=== PATIENT | female | born 1960 | race Caucasian/White ===

== ENCOUNTER 2017-09-17 08:44 | Emergency (ER) | payer OTHER ==
[~2017-09-17] VITALS: Ht 165.1 cm; Wt 95.0 kg
[2017-09-17 08:46] VITALS: BP 146/78; PULSE 87; RESP 16; TEMP 98.4; O2SAT 97
[2017-09-17] MEDS ORDERED: ASPI-516 CHEW (08:56)
[2017-09-17] MEDS ORDERED: LISI-515 PO (08:56)
[2017-09-17] MEDS ORDERED: ROPI3TAB PO (08:56)
[2017-09-17] MEDS ORDERED: ROSU20 PO (08:56)
[2017-09-17 09:15] VITALS: O2SAT 99
--- NOTE | 2017-09-17 09:18 | RADRPT ---
EXAM DATE/TIME: 09/17/2017 09:16 [place] COMPARISON: No previous studies available for comparison. INDICATIONS : Chest pain. Short of breath. Dizziness. MEDICAL HISTORY : Smoker. SURGICAL HISTORY : None. ENCOUNTER: Initial ACUITY: 2 days PAIN SCORE: 1/10 LOCATION: Bilateral chest FINDINGS: A single view of the chest demonstrates the lungs to be symmetrically aerated without evidence of mas s, infiltrate or effusion. The cardiomediastinal contours are unremarkable. Osseous structures are intact. CONCLUSION: 1. No acute cardiopulmonary disease. Shekhar Rasmussen MD on September 17, 2017 at 9:15 Board Certified Radiologist. This report was verified electronically.
[2017-09-17 09:28] LABS: AUTOMATED NEUTROPHIL # 3.3 TH/MM3 (1.8-7.7); BASOPHIL % 0.8 % (0.0-2.0); EOSINOPHIL # 0.1 TH/MM3 (0-0.4); EOSINOPHIL % 1.1 % (0.0-4.0); HEMATOCRIT 43.4 % (35.0-46.0); HEMO FLAGS DIFF FINAL; LYMPHOCYTE # 1.7 TH/MM3 (1.0-4.8); MEAN CELL VOLUME 94.3 FL (80.0-100.0); MEAN CORPUSCULAR HEMOGLOBIN 31.5 PG (27.0-34.0); MEAN CORPUSCULAR HGB CONC 33.4 % (32.0-36.0); MONO % 7.1 % (0.0-8.0); PLATELET COUNT 191 TH/MM3 (150-450); RED CELL DISTRIBUTION WIDTH 12.8 % (11.6-17.2); WHITE BLOOD COUNT 5.6 TH/MM3 (4.0-11.0)
[2017-09-17] MEDS ORDERED: SODIUM CHLOR 0.9% 1000 ML INJ 1,000 ML IV ONE (09:30)
--- NOTE | 2017-09-17 09:37 | PD ---
HPI Chief Complaint: Chest Pain Time Seen by Provider: 09:14 Travel History International Travel<30 days: No Contact w/Intl Traveler<30days: No Traveled to known affect area: No History of Present Illness HPI Patient is a 57-year-old female with history of hypertension, hyperlipidemia, restless leg syndrome, presents to emergency room with complaints of heart palpitations. Reports that for the past 2-3 days, she has been having intermittent episodes of heart racing. Reports that her heartbeat racing while at rest or on exertion, reports that when she has symptoms, she does feel short of breath and does have episodes of dizziness with this. Patient reports that symptoms can last for a few seconds to a few minutes and resolve on its own. Patient reports that she has been concerned as her symptoms have been more frequent over the past 2 days. Patient reports no chest pain at this time, denies any diaphoresis, denies any shortness of breath, denies any dizziness. Reports that she feels tired and "lethargic." Patient denies any recent travels or trips. She does endorse that she does use marijuana. Patient with no history of PE or DVT. Patient with no fever or chills, no abdominal pain, nausea vomiting. Patient's only complaint is time is tiredness. Patient reports that she was seen by a business process associate at [facility] about 3 years ago and had a negative stress test, she was seen as her pcp sent her there for an abnormal EKG which showed a RBBB PFSH Past Medical History High Cholesterol: Yes Hypertension: Yes Tetanus Vaccination: > 5 Years ?: Not Past Surgical History Surgical History: No Previous Surgery Social History Alcohol Use: Yes Tobacco Use: Yes Substance Use: No Allergies-Medications (Allergen,Severity, Reaction): Coded Allergies: No Known Allergies (Unverified , 09/17/17) Reported Meds & Prescriptions Reported Meds & Active Scripts Active Reported Crestor (Rosuvastatin Calcium) 20 Mg Tab 20 Mg PO DAILY Lisinopril 20 Mg Tab 20 Mg PO DAILY Ropinirole 3 Mg Tab 3 Mg PO TID Aspirin 81 Mg Chew 81 Mg CHEW DAILY Review of Systems General / Constitutional: No: Fever Eyes: No: Visual changes HENT: No: Headaches Cardiovascular: Positive: Palpitations, Irregular Rhythm, Tachycardia, No: Chest Pain or Discomfort Respiratory: Positive: Shortness of Breath Gastrointestinal: No: Abdominal Pain Genitourinary: No: Dysuria Musculoskeletal: No: Pain Skin: No Rash Neurologic: Positive: Weakness, Dizziness, No: Syncope, Headache Psychiatric: No: Depression Endocrine: No: Polydipsia Hematologic/Lymphatic: No: Easy Bruising Physical Exam Narrative GENERAL: Mild distress SKIN: Focused skin assessment warm/dry. HEAD: Atraumatic. Normocephalic. EYES: Pupils equal and round. No scleral icterus. No injection or drainage. ENT: No nasal bleeding or discharge. Mucous membranes pink and moist. NECK: Trachea midline. No JVD. CARDIOVASCULAR: Regular rate and rhythm. No murmur appreciated. RESPIRATORY: No accessory muscle use. Clear to auscultation. Breath sounds equal bilaterally. GASTROINTESTINAL: Abdomen soft, non-tender, nondistended. Hepatic and splenic margins not palpable. MUSCULOSKELETAL: No obvious deformities. No clubbing. No cyanosis. No edema. NEUROLOGICAL: Awake and alert. No obvious cranial nerve deficits. Motor grossly within normal limits. Normal speech. PSYCHIATRIC: Appropriate mood and affect; insight and judgment normal. Data Data Last Documented VS Vital Signs Date Time Temp Pulse Resp B/P (MAP) Pulse Ox O2 Delivery O2 Flow Rate FiO2 09/17/17 09:15 99 09/17/17 09:15 09/17/17 08:46 98.4 87 16 Orders Orders Electrocardiogram (09/17/17 08:57) Complete Blood Count With Diff (09/17/17 08:57) Basic Metabolic Panel (Bmp) (09/17/17 08:57) Ckmb (Isoenzyme) Profile (09/17/17 08:57) Troponin I (09/17/17 08:57) Chest, Single Ap (09/17/17 08:57) Iv Access Insert/Monitor (09/17/17 08:57) Ecg Monitoring (09/17/17 08:57) Oxygen Administration (09/17/17 08:57) Oximetry (09/17/17 08:57) Thyroid Stimulating Hormone (09/17/17 09:23) Sodium Chlor 0.9% 1000 Ml Inj (Ns 1000 M (09/17/17 09:30) CKMB (09/17/17 09:00) CKMB% (09/17/17 09:00) Labs Laboratory Tests Test 09/17/17 09:00 White Blood Count 5.6 TH/MM3 Red Blood Count 4.60 MIL/MM3 Hemoglobin 14.5 GM/DL Hematocrit 43.4 % Mean Corpuscular Volume 94.3 FL Mean Corpuscular Hemoglobin 31.5 PG Mean Corpuscular Hemoglobin Concent 33.4 % Red Cell Distribution Width 12.8 % Platelet Count 191 TH/MM3 Mean Platelet Volume 9.0 FL Neutrophils (%) (Auto) 60.0 % Lymphocytes (%) (Auto) 31.0 % Monocytes (%) (Auto) 7.1 % Eosinophils (%) (Auto) 1.1 % Basophils (%) (Auto) 0.8 % Neutrophils # (Auto) 3.3 TH/MM3 Lymphocytes # (Auto) 1.7 TH/MM3 Monocytes # (Auto) 0.4 TH/MM3 Eosinophils # (Auto) 0.1 TH/MM3 Basophils # (Auto) 0.0 TH/MM3 CBC Comment DIFF FINAL Differential Comment Blood Urea Nitrogen 12 MG/DL Creatinine 0.81 MG/DL Random Glucose 103 MG/DL Calcium Level 9.4 MG/DL Sodium Level 139 MEQ/L Potassium Level 3.9 MEQ/L Chloride Level 107 MEQ/L Carbon Dioxide Level 23.8 MEQ/L Anion Gap 8 MEQ/L Estimat Glomerular Filtration Rate 73 ML/MIN Total Creatine Kinase 179 U/L Creatine Kinase MB 2.9 NG/ML Troponin I LESS THAN 0.02 NG/ML Thyroid Stimulating Hormone 3rd Gen 1.850 uIU/ML MDM Medical Decision Making Medical Screen Exam Complete: Yes Emergency Medical Condition: Yes Medical Record Reviewed: Yes Interpretation(s) EKG at 0915: NSR at 73bpm, qt/qtc: 406/432, rbbb, no acute changes Vital Signs Date Time Temp Pulse Resp B/P (MAP) Pulse Ox O2 Delivery O2 Flow Rate FiO2 09/17/17 09:15 99 09/17/17 09:15 99 09/17/17 08:46 98.4 87 16 146/78 (100) 97 Differential Diagnosis Differential includes hyperthyroidism, anxiety reaction, dehydration, ACS, arrhythmia, electrolyte abnormality Narrative Course 57-year-old female who presents to emergency room with complaints of palpitations with intermittent symptoms of dizziness, lightheadedness, generalized weakness and shortness of breath which has been intermittent for the past 2-3 days. During the course of the patients emergency department visit, the patients history, examination, and differential diagnosis were reviewed with the patient. The patient was placed on a car sealer with oximetry and frequent blood pressure monitoring. The patient had 20-gauge V access obtained and blood work sent for analysis. The patient was initially provided IV fluids.. The patients laboratory studies were reviewed and remarkable for CBC & BMP Diagram 09/17/17 09:00 Calcium Level 9.4 trop: less than 0.02 TSH 1.850 Radiology studies were reviewed and remarkable for: Last Impressions Chest X-Ray 09/17/17 0857 Signed Impressions: Service Date/Time: Sunday, September 17, 2017 09:16 - CONCLUSION: 1. No acute cardiopulmonary disease. Shekhar Rasmussen MD I reviewed all labs and all studies with patient in detail. Patient feeling much better at this time. Patient with no complaints and with complete resolution of symptoms. Signs and symptoms of when to return to the ER was reviewed with patient in detail. Discussed need for her to follow up with business process associate for further evaluation may have palpitations secondary to PVCs. She may ultimately require a Holter monitor to see these what is causing her palpitations. Patient with absolutely no chest pain at this time. Patient is safe for discharge as an outpatient. Signs and symptoms of when to return to emergency room was reviewed patient in detail. Diagnosis Primary Impression: Heart palpitations Additional Impression: Generalized weakness Referrals: Octaviano Colvin DO Patient Instructions: General Instructions Additional Instructions: Please provide patient with a copy of their lab work and studies at discharge* * Please follow up with your primary care doctor in 2-3 days Return to the ER if symptoms worsen or progress Return to the ER as needed Please follow up with Computer Network And Systems Engineer for further workup Disposition: 01 DISCHARGE HOME Condition: Stable Autumn Valdez DO Sep 17, 2017 09:37
[2017-09-17 09:44] LABS: ANION GAP 8 MEQ/L (5-15); BICARBONATE 23.8 MEQ/L (21.0-32.0); BLOOD UREA NITROGEN 12 MG/DL (7-18); CHLORIDE 107 MEQ/L (98-107); GLOMERULAR FILTRATION RATE 73 ML/MIN (>89); POTASSIUM 3.9 MEQ/L (3.5-5.1); SODIUM (NA) 139 MEQ/L (136-145)
[2017-09-17 09:49] LABS: CREATINE KINASE 179 U/L (26-192)
[2017-09-17 10:01] LABS: CKMB 2.9 NG/ML (0.5-3.6)
--- NOTE | 2017-09-18 08:52 | EKG ---
Date Performed: 09/17/2017 Time Performed: 09:15:23 PTAGE: 57 years EKG: Sinus rhythm RIGHT BUNDLE BRANCH BLOCK LEFT ANTERIOR FASCICULAR BLOCK MODERATE VOLTAGE CRITERIA FOR LVH, CONSIDER NORMAL VARIANT ABNORMAL ECG NO PREVIOUS TRACING DOCTOR: Homero Stringer Interpretating Date/Time 09/18/2017 08:46:06
== END 2017-09-17 11:15 | disposition home or self-care (01) ==
LOC: NEPD 08:44
DX: R00.2 Palpitations (principal); R53.1 Weakness; R94.31 Abnormal electrocardiogram [ECG] [EKG]; G25.81 Restless legs syndrome; I10 Essential (primary) hypertension; Z72.0 Tobacco use
CPT/HCPCS: 71010; 80048; 82550; 82552; 84443; 84484; 85025; 93005; 99285; J7030